=== PATIENT | female | born 1950 | race African-American/Black ===

== ENCOUNTER 2024-04-27 14:22 | Outpatient (AMB) | payer OTHER, SELFPAY ==
--- NOTE | 2024-04-27 14:29 | A.OFFVIS_ITS ---
Vital Signs 04/27/24 14:31 Height 4 ft 6 in Weight 108 lb BMI 26.0 BP 110/82 Blood Pressure Location Rt brachial Position Sitting Pulse 69 Pulse Source Pulse Oximeter Pulse Oximetry (%) 98 Intake Visit Reasons: ENP-Involun muscle jerks body mostly arms Intake Note: Referred by [facility] med. for involuntary jerks Allergies No Known Allergies Allergy (Verified 04/27/24 14:32) Medication List - Last Reconciled 04/27/24 by Marylou Kc MD atorvastatin 40 mg PO DAILY brimonidine 0.1% 1 drp ophthalmic (eye) Q8H brimonidine 0.15% drps ophthalmic (eye) citalopram 40 mg PO DAILY cromolyn 4% drps ophthalmic (eye) latanoprost 0.005% drps ophthalmic (eye) prazosin 1 mg PO BEDTIME telmisartan 20 mg PO DAILY tizanidine 2 mg PO BID HPI Comments Details: 74y/o female with developmental delay comes for evaluation of involuntary movements. she lives with her sister now and she is independent in most ADLs. she graduated form high school- special ed , never worked , ojeda snot drive. 1 year ago she started noticing abnormal movements- jerky movements of elizabeth shoulders like shrugging.she denies any confusion or change in mentation during the movements. she says it is involuntary and she cannot suppress it . Now she also has pain in elizabeth shoulder. It resolves in sleep. she snores and has frequent arousals in sleep and hypersomnia- takes daytime naps. she goes to [employer] 2 times a week No h/o seizures. she has some neck pain and deg arthritis in her neck.she gets cortisone shots to her neck she denies any numbness or tingling in her hands or LE. [facility] Medical History (Updated 04/27/24 @ 15:04 by Marylou Kc MD) Hypersomnia Snoring Abnormal involuntary movement Developmental delay, borderline Severe major depression Prediabetes Neck pain Lower back pain HTN (hypertension) Hyperlipidemia Degenerative arthritis of cervical spine Surgical History H/O section Family History Mother Type 2 diabetes mellitus HTN (hypertension) Hyperlipidemia Father Type 2 diabetes mellitus HTN (hypertension) Prostate CA Myocardial infarct Social History Alcohol intake: never Patient Tobacco Use Status: Never used Tobacco Physical Exam Vital Signs: Last Vital Signs Pulse 69 04/27/24 14:31 BP 110/82 04/27/24 14:31 Pulse Ox 98 04/27/24 14:31 BMI result Body Mass Index 26.0 Const General: cooperative, healthy appearing and comfortable Nutritional Appearance: average body habitus Orientation/consciousness: oriented to person Neuro Other: Mallampatti grade 4 Intermittent elizabeth shoulder jerks - resolves when distracted General: oriented to person, tone normal, moves all extremities and no focal motor deficits Cranial nerves: Yes Bilaterally intact EOM present, Yes Nystagmus not present, Yes Normal facial strength present and No Midline tongue present Gait exam (Neuro): Antalgic gait present Motor exam (neuro): 5/5 motor strength present throughout and Normal motor muscle tone present throughout Deep tendon reflexes (DTR's): Right triceps reflex intensity grade: 3+, Left triceps reflex intensity grade: 3+, Rt Biceps (C5, C6): 3+, Left biceps reflex intensity grade: 3+, Right brachioradialis reflex intensity grade: 3+, Left brachioradialis reflex intensity grade: 2+ and Right patellar reflex intensity grade: 2+ Coordination: [id number] test normal Assessment & Plan Assessment & Plan (1) Abnormal involuntary movement: Comment: ? TICS ? Myoclonus ? functional Code(s): R25.9 - Unspecified abnormal involuntary movements Category: Medical (2) Snoring: Code(s): R06.83 - Snoring Category: Medical (3) Hypersomnia: Code(s): G47.10 - Hypersomnia, unspecified Category: Medical Plan I will evaluate her with MRI brain and EEG Home sleep test to r/o sleep apnea I will hold off on medications as these movements ojeda snot affect her ADLs or are not consistent. Orders: Orders MR head/brain wo con Today R25.9 - Unspecified abnormal involuntary movements EEG electroencephalogram Today R25.9 - Unspecified abnormal involuntary movements RT home sleep study Today G47.10 - Hypersomnia, unspecified, R06.83 - Snoring Coding Level of Care Code New Pt Level 4 (73793) Diagnoses Abnormal involuntary movement R25.9 Snoring R06.83 Hypersomnia G47.10
[2024-04-27 14:31] VITALS: BP 110/82; PULSE 69; O2SAT 98; BMI 26.0
== END 2024-04-27 15:03 | disposition home or self-care (01) ==
PROVIDERS: PCP Nurse Practitioner Family; Visit Provider Psychiatry & Neurology Neurology
DX: R25.9 Unspecified abnormal involuntary movements (principal); R06.83 Snoring; G47.10 Hypersomnia, unspecified
CPT/HCPCS: 99204

== ENCOUNTER → 2024-04-27 14:22 | Outpatient (BNVA) | payer OTHER, SELFPAY | PROVIDERS: PCP Nurse Practitioner Family; Visit Provider Psychiatry & Neurology Neurology | DX: R06.83 Snoring (principal); R25.9 Unspecified abnormal involuntary movements; G47.10 Hypersomnia, unspecified | CPT/HCPCS: 99202 ==

== ENCOUNTER 2024-05-09 11:24 | Outpatient (REF) | payer OTHER, SELFPAY ==
--- NOTE | ~2024-05-09 | MR_ITS ---
CLINICAL HISTORY: R25.9 - Unspecified abnormal involuntary movements MRI Brain Without Contrast: Comparison: None Findings: No restricted diffusion or infarction. Basal ganglia are unremarkable Mass effect: No shift in midline structures Intracranial bleeding: No intraparenchymal bleeding or abnormal extra axial blood fluid collections Pituitary: Normal in size Visualized sinuses: There is mucosal thickening involving inferior left maxillary sinus Nasal cavity inferior turbinates are enlarged. Orbital structures: Unremarkable The posterior fossa and cerebellar pontine angles are normal. Vestibular nerve complexes are normal. Calvarium: There is no abnormal meningeal thickening or nodularity Impression: Unremarkable MRI of the brain. This document has been electronically signed by: Gasper Armendariz MD on 05/09/2024 13:16:14
== END 2024-05-09 11:25 | disposition home or self-care (01) ==
LOC: HO.MRI 11:24
PROVIDERS: PCP Nurse Practitioner Family; Visit Provider Psychiatry & Neurology Neurology
DX: R25.9 Unspecified abnormal involuntary movements (principal)
CPT/HCPCS: 70551

== ENCOUNTER → 2024-05-09 11:24 | Outpatient (BNV) | payer OTHER, SELFPAY | PROVIDERS: PCP Nurse Practitioner Family; Visit Provider Radiology Diagnostic Radiology | DX: R25.9 Unspecified abnormal involuntary movements (principal) | CPT/HCPCS: 70551 ==

== ENCOUNTER 2024-06-17 09:43 | Outpatient (REF) | payer OTHER, SELFPAY ==
--- NOTE | 2024-06-17 09:48 | EEG_ITS ---
FINDINGS: This is a 16-channel EEG with an EKG lead. The patient is reported awake during the tracing. Background EEG rhythm is about 10 Hz, 5-70 microvolt posteriorly, lower amplitude fast anteriorly. Almost constant muscle artifacts were noted in anterior leads. Intermittently, left parietal area sharply controlled. Theta range discharges were noted with focality at P3. Cardiac lead did not reveal any significant abnormality. Photic stimulation did not produce any significant driving. Hyperventilation was not performed. IMPRESSION: Mildly abnormal EEG suggestive of left parietal irritability. MD KERMIT Sargent/LISA / [id number]
== END 2024-06-17 09:44 | disposition home or self-care (01) ==
LOC: HO.NEURO 09:43
PROVIDERS: PCP Nurse Practitioner Family; Visit Provider Psychiatry & Neurology Neurology
DX: R25.9 Unspecified abnormal involuntary movements (principal)
CPT/HCPCS: 95816

== ENCOUNTER → 2024-06-24 09:38 | Outpatient (REF) | payer OTHER, SELFPAY | LOC: HO.SL 09:38 | PROVIDERS: PCP Nurse Practitioner Family; Visit Provider Psychiatry & Neurology Neurology | DX: R06.83 Snoring (principal); G47.10 Hypersomnia, unspecified | CPT/HCPCS: 95806 ==

== ENCOUNTER → 2024-06-24 10:01 | Outpatient (BNV) | payer OTHER, SELFPAY | PROVIDERS: PCP Nurse Practitioner Family; Visit Provider Psychiatry & Neurology Neurology | DX: R06.83 Snoring (principal); G47.10 Hypersomnia, unspecified | CPT/HCPCS: 95806 ==

== ENCOUNTER 2024-08-25 14:47 | Outpatient (AMB) | payer OTHER, SELFPAY ==
[2024-08-25 14:51] VITALS: BP 124/82; BMI 26.0
--- NOTE | 2024-08-25 14:51 | MHC.OFFVIS ---
Vital Signs 08/25/24 14:51 Height 4 ft 6 in Weight 108 lb BMI 26.0 BP 124/82 Blood Pressure Location Rt brachial Position Sitting Intake Visit Reasons: 4mon follow-up Intake Note: Patient presents for follow up MRI done 05/09/24;EEG done 06/17/2024 and sleep study 07/07/2024 Allergies No Known Allergies Allergy (Verified 08/25/24 14:54) HPI Comments Details: 74y/o female with developmental delay comes for evaluation of involuntary movements. MRI brain was unremarkable . EEG showed mild lefT parietal irritability. Home sleep test was normal - AHI 4.7 O 2- marlin 86% she denies any episodes of loss of consiousness, seizure like activity or staring episodes. The involuntary jerks are almost everyday - can last few seconds . No change in mentation. she lives with her sister now and she is independent in most ADLs. she graduated form high school- special ed , never worked , does not drive. 1 year ago she started noticing abnormal movements- jerky movements of elizabeth shoulders like shrugging.she denies any confusion or change in mentation during the movements. she says it is involuntary and she cannot suppress it . Now she also has pain in elizabeth shoulder. It resolves in sleep. she snores and has frequent arousals in sleep and hypersomnia- takes daytime naps. she goes to [employer] 2 times a week No h/o seizures. she has some neck pain and deg arthritis in her neck.she gets cortisone shots to her neck she denies any numbness or tingling in her hands or LE. [facility] Medical History Hypersomnia Snoring Abnormal involuntary movement Developmental delay, borderline Severe major depression Prediabetes Neck pain Lower back pain HTN (hypertension) Hyperlipidemia Degenerative arthritis of cervical spine Surgical History H/O section Family History Mother Type 2 diabetes mellitus HTN (hypertension) Hyperlipidemia Father Type 2 diabetes mellitus HTN (hypertension) Prostate CA Myocardial infarct Social History Alcohol intake: never Patient Tobacco Use Status: Never used Tobacco Physical Exam Vital Signs: Last Vital Signs BP 124/82 08/25/24 14:51 BMI result Body Mass Index 26.0 Const General: cooperative, healthy appearing and comfortable Nutritional Appearance: average body habitus Orientation/consciousness: oriented to person Neuro Other: Mallampatti grade 4 Intermittent elizabeth shoulder jerks - resolves when distracted General: oriented to person, tone normal, moves all extremities and no focal motor deficits Cranial nerves: Yes Bilaterally intact EOM present, Yes Nystagmus not present, Yes Normal facial strength present and No Midline tongue present Gait exam (Neuro): Antalgic gait present Motor exam (neuro): 5/5 motor strength present throughout and Normal motor muscle tone present throughout Coordination: [id number] test normal Results Reviewed Results Reviewed: EEG -Mildly abnormal EEG suggestive of left parietal irritability. MRI Brain - unremarkable 2024 Assessment & Plan Assessment & Plan (1) Abnormal involuntary movement: Comment: ? TICS ? Myoclonus ? functional Code(s): R25.9 - Unspecified abnormal involuntary movements Category: Medical (2) Snoring: Code(s): R06.83 - Snoring Category: Medical (3) Hypersomnia: Code(s): G47.10 - Hypersomnia, unspecified Category: Medical Plan Reviewed MRI brain and EEG and HST suggested to avoid supine sleep. No clinical suggestion of seizures. I will follow her up in 1 year. I will hold off on medications as these movements ojeda snot affect her ADLs or are not consistent. Coding Level of Care Code Est Pt Level 4 (23820) Complex EM visit Add On G2211 Diagnoses Abnormal involuntary movement R25.9 Snoring R06.83 Hypersomnia G47.10
== END 2024-08-25 15:15 | disposition home or self-care (01) ==
LOC: HO.HSMS 14:48
PROVIDERS: PCP Nurse Practitioner Family; Visit Provider Psychiatry & Neurology Neurology
DX: R25.9 Unspecified abnormal involuntary movements (principal); R06.83 Snoring; G47.10 Hypersomnia, unspecified
CPT/HCPCS: 99214; G2211

== ENCOUNTER → 2024-08-25 14:47 | Outpatient (BNVA) | payer OTHER, SELFPAY | PROVIDERS: PCP Nurse Practitioner Family; Visit Provider Psychiatry & Neurology Neurology | DX: R06.83 Snoring (principal); G47.10 Hypersomnia, unspecified; R25.9 Unspecified abnormal involuntary movements | CPT/HCPCS: 99212 ==